=== PATIENT | male | born 1995 | race Caucasian/White ===

== ENCOUNTER 2017-10-03 14:42 | Emergency (ER) | payer MEDICAID ==
[~2017-10-03] VITALS: Ht 177.8 cm; Wt 105.0 kg
[2017-10-03 15:11] VITALS: BP 136/82
== END 2017-10-03 18:14 | disposition home or self-care (01) ==
LOC: ER 17:13
DX: S62.316A Displaced fracture of base of fifth metacarpal bone, right hand, initial encounter for closed fracture (principal); W01.0XXA Fall on same level from slipping, tripping and stumbling without subsequent striking against object, initial encounter; Y93.89 Activity, other specified; Y92.89 Other specified places as the place of occurrence of the external cause
CPT/HCPCS: 29125; 73130; 99284

== ENCOUNTER 2020-12-17 16:53 | Emergency (ER) | payer MEDICAID, OTHER ==
[~2020-12-17] VITALS: Ht 175.3 cm; Wt 95.0 kg
[2020-12-17] MEDS ORDERED: MAGNESIUM/ALUMINUM HYDROXIDE/SIMETHICONE 30ML UDC PO STA (23:17)
[2020-12-17] MEDS ORDERED: VISCOUS LIDOCAINE 2% 15 ML UDC PO STA (23:17)
[2020-12-17] MEDS ORDERED: SODIUM CHLORIDE 0.9% 1,000 ML IV ONE (23:30)
[2020-12-17 23:47] LABS: BASOPHILS % 0.5 % (0.0-2.0); EOSINOPHILS % 1.6 % (0.0-5.0); HEMATOCRIT. 40.5 % (42.0-52.0); HEMOGLOBIN. 13.9 g/dL (14.0-18.0); LYMPHOCYTES % 29.9 % (20.0-50.0); MEAN CORPUSCULAR HEMOGLOBIN 31.2 pg (28.0-32.0); MEAN CORPUSCULAR VOLUME 90.8 fL (80.0-94.0); MEAN PLATELET VOLUME 7.9 fl (7.4-10.4); MONOCYTES % 6.2 % (2.0-8.0); NEUTROPHILS % 61.8 % (40.0-76.0); PLATELET 277 x1000/uL (130-400); RED BLOOD CELL COUNT 4.46 mill/uL (4.7-6.1); RED CELL DISTRIBUTION WIDTH 13.4 % (11.6-14.6)
[2020-12-17 23:54] LABS: CHLORIDE 103 mEq/L (98-107)
[2020-12-18] MEDS ORDERED: ONDA8TAB13 MT (00:12)
[2020-12-18 00:50] VITALS: BP 127/80
== END 2020-12-18 00:59 | disposition home or self-care (01) ==
LOC: ER 16:53
DX: R10.13 Epigastric pain (principal); R11.2 Nausea with vomiting, unspecified; F14.10 Cocaine abuse, uncomplicated
CPT/HCPCS: 36415; 80053; 83690; 85025; 93005; 96360; 99284; J7030